=== PATIENT | female | born 1970 | race Caucasian/White ===

== ENCOUNTER 2019-03-13 15:24 | Emergency (ER) | payer OTHER ==
[~2019-03-13] VITALS: Ht 152.4 cm; Wt 65.8 kg
[~2019-03-13 15:24] MED LIST: ACET325; CARI350; CARI350 PO; CEPH500 PO; CODBUTACEC PO; DIAZ5 PO; FLUO10; FLUO20 PO; GABA100 PO; HYDACE5 PO; HYDACE7.5 PO; HYOS.125 SL; MECL25 PO; MORP30 PO; ONDA4ODT MM; OXYACE5T PO; OXYC30 PO; SULTRIDS PO
[2019-03-13 15:52] LABS: BASOPHILS ABSOLUTE AUTO 0.09 K/mm3 (0.00-0.23); BASOPHILS PERCENT AUTO 1 % (0-2); EOSINOPHILS ABSOLUTE AUTO 0.45 K/mm3 (0.00-0.68); EOSINOPHILS PERCENT AUTO 2 % (0-6); Hematocrit 45.2 % (33.0-51.0); Hemoglobin 14.7 g/dL (11.5-16.0); IMMATURE GRAN ABSOLUTE AUTO 0.07 K/mm3 (0.00-0.10); IMMATURE GRAN PERCENT AUTO 0 % (0-1); LYMPHOCYTES ABSOLUTE AUTO 4.43 K/mm3 (0.84-5.20); LYMPHOCYTES PERCENT AUTO 23 % (21-46); MONOCYTES ABSOLUTE AUTO 1.35 K/mm3 (0.16-1.47); MONOCYTES PERCENT AUTO 7 % (4-13); Mean Corpuscular HGB 29.5 pg (26.0-34.0); Mean Corpuscular HGB Conc 32.5 g/dL (31.5-36.5); Mean Corpuscular Volume 91 fL (80-100); Mean Platelet Volume 9.1 fL (9.1-12.4); NEUTROPHILS ABSOLUTE AUTO 13.12 K/mm3 (1.96-9.15); NEUTROPHILS PERCENT AUTO 67 % (41-73); Platelet Count 466 K/mm3 (150-400); RDW Coefficient Variation 14.3 % (11.7-14.2); Red Blood Cell Count 4.98 M/mm3 (3.80-5.20); White Blood Cell Count 19.51 K/mm3 (4.00-11.30)
[2019-03-13] MEDS ORDERED: ROXICODONE15 MG (15:53)
[2019-03-13] MEDS ORDERED: HYDHCL25 PO (16:10)
[2019-03-13] MEDS ORDERED: BUPROPION HCL200 M1 PO (16:11)
[2019-03-13] MEDS ORDERED: PROZAC40 MG PO (16:12)
[2019-03-13] MEDS ORDERED: NEURONTIN300 MG (16:12)
[2019-03-13 16:18] LABS: Alanine Aminotransfer (ALT/SGP 26 U/L (12-78); Albumin, Blood 3.5 g/dL (3.4-5.0); Alk Phos 89 U/L (50-136); Anion Gap 7 mmol/L (6-16); Aspartate Aminotrans (AST/SGOT 33 U/L (12-37); Bilirubin, Total 0.2 mg/dL (0.1-1.0); Blood Urea Nitrogen 17 mg/dL (8-24); Bun/Creatinine Ratio 24.7 (12.0-20.0); CO2, Blood 26 mmol/L (21-32); Calcium, Blood 8.4 mg/dL (8.5-10.1); Chloride, Blood 106 mmol/L (98-108); Creatinine, Blood 0.69 mg/dL (0.40-1.00); Globulin, Blood 3.5 g/dL (2.2-4.0); Glomerular Filtration Rate >60 (60-); Glucose, Blood 153 mg/dL (70-99); Sodium, Blood 139 mmol/L (136-145); Troponin I <0.015 ng/mL (0.000-0.040)
[2019-03-13] MEDS ORDERED: Protonix40 MG PO (17:15)
[2019-03-13] MEDS ORDERED: Carafate1 GM/10 ML PO (17:15)
== END 2019-03-13 17:28 | disposition home or self-care (01) ==
LOC: ER 15:24
PROVIDERS: Physician Assistant
DX: K21.9 Gastro-esophageal reflux disease without esophagitis (principal); K22.4 Dyskinesia of esophagus; Z88.8 Allergy status to other drugs, medicaments and biological substances; Z79.899 Other long term (current) drug therapy; G43.909 Migraine, unspecified, not intractable, without status migrainosus; F32.9 Major depressive disorder, single episode, unspecified; F17.200 Nicotine dependence, unspecified, uncomplicated
CPT/HCPCS: 36415; 71046; 80053; 84484; 85025; 93005; 93010; 96374; 96375; 99284-25; J2765; J3360

== ENCOUNTER 2019-04-19 03:44 | Inpatient (IN) | payer OTHER ==
[~2019-04-19] VITALS: Ht 152.4 cm; Wt 65.1 kg
[~2019-04-19 03:44] MED LIST changes: +BUPROPION HCL200 M1 PO; +Carafate1 GM/10 ML PO; +HYDHCL25 PO; +NEURONTIN300 MG; +PROZAC40 MG PO; +Protonix40 MG PO; +ROXICODONE15 MG
[2019-04-19] MEDS ORDERED: CARB200 PO (04:04)
[2019-04-19] MEDS ORDERED: BACL10 PO (04:05)
[2019-04-19 04:28] LABS: BASOPHILS ABSOLUTE AUTO 0.09 K/mm3 (0.00-0.23); BASOPHILS PERCENT AUTO 1 % (0-2); EOSINOPHILS ABSOLUTE AUTO 0.24 K/mm3 (0.00-0.68); EOSINOPHILS PERCENT AUTO 2 % (0-6); Hematocrit 43.1 % (33.0-51.0); Hemoglobin 14.1 g/dL (11.5-16.0); IMMATURE GRAN ABSOLUTE AUTO 0.03 K/mm3 (0.00-0.10); IMMATURE GRAN PERCENT AUTO 0 % (0-1); LYMPHOCYTES ABSOLUTE AUTO 1.96 K/mm3 (0.84-5.20); LYMPHOCYTES PERCENT AUTO 15 % (21-46); MONOCYTES ABSOLUTE AUTO 0.83 K/mm3 (0.16-1.47); MONOCYTES PERCENT AUTO 6 % (4-13); Mean Corpuscular HGB 29.1 pg (26.0-34.0); Mean Corpuscular HGB Conc 32.7 g/dL (31.5-36.5); Mean Corpuscular Volume 89 fL (80-100); Mean Platelet Volume 9.1 fL (9.1-12.4); NEUTROPHILS ABSOLUTE AUTO 9.73 K/mm3 (1.96-9.15); NEUTROPHILS PERCENT AUTO 76 % (41-73); Platelet Count 428 K/mm3 (150-400); RDW Coefficient Variation 13.4 % (11.7-14.2); RDW Standard Deviation 43.9 fL (35.1-46.3); Red Blood Cell Count 4.84 M/mm3 (3.80-5.20); White Blood Cell Count 12.88 K/mm3 (4.00-11.30)
[2019-04-19 04:46] LABS: Alanine Aminotransfer (ALT/SGP 26 U/L (12-78); Albumin, Blood 3.5 g/dL (3.4-5.0); Albumin/Globulin Ratio 0.9 (0.8-1.8); Alk Phos 85 U/L (50-136); Anion Gap 8 mmol/L (6-16); Aspartate Aminotrans (AST/SGOT 23 U/L (12-37); Bilirubin, Total 0.2 mg/dL (0.1-1.0); Blood Urea Nitrogen 11 mg/dL (8-24); Bun/Creatinine Ratio 18.6 (12.0-20.0); CO2, Blood 25 mmol/L (21-32); Calcium, Blood 9.3 mg/dL (8.5-10.1); Chloride, Blood 109 mmol/L (98-108); Creatinine, Blood 0.59 mg/dL (0.40-1.00); Globulin, Blood 3.8 g/dL (2.2-4.0); Glomerular Filtration Rate >60 (60-); Glucose, Blood 132 mg/dL (70-99); Potassium, Blood 3.9 mmol/L (3.5-5.5); Sodium, Blood 142 mmol/L (136-145); Total Protein, Blood 7.3 g/dL (6.4-8.2)
[2019-04-19 05:12] LABS: U Amphetamine Screen Not Detected; U Barbituate Screen Not Detected; U Benzodiazapine Screen Not Detected; U Buprenorphine Screen Not Detected; U Cannabinoids Screen Not Detected; U Cocaine Screen Not Detected; U Methadone Screen Not Detected; U Methamphetamine Screen Not Detected; U Opiates Screen Not Detected; U Oxycodone Screen DETECTED; U Propoxyphene Screen Not Detected
[2019-04-19 05:26] LABS: Source, Urine Clean Catch
[2019-04-19 05:46] LABS: Bilirubin, Urine Neg (Neg); Blood, Urine Neg (Neg); Glucose Qualitative, Urine Neg (Neg); Ketones, Urine Neg (Neg); Leukocyte Esterase, Urine 1+ (Neg); Nitrite, Urine Neg (Neg); Protein, Urine Neg (Neg); Urobilinogen, Urine NORM (Normal)
[2019-04-19 05:58] LABS: Appearance, Urine Clear (Clear); Color, Urine Yellow (P-Yellow)
[2019-04-19 06:02] LABS: Bacteria Mod /hpf; Red Blood Cells, Urine 0-2 /hpf (0-2); Squamous Epithelial Cells Mod /hpf (Few)
[2019-04-19 10:24] LABS: Carbamazepine 11.3 ug/mL (4.0-12.0)
[2019-04-19] MEDS ORDERED: CYCL10 PO (10:42)
[2019-04-19] MEDS ORDERED: QUET25 (10:44)
[2019-04-19 11:05] LABS: Salicylate 6.3 mg/dL (2.8-20.0)
[2019-04-19 11:23] LABS: Acetaminophen, Random <2.0 ug/mL (10.0-30.0)
--- NOTE | 2019-04-19 11:30 | NUR ---
PT ARRIVED AT 1115 FROM ER, VERY AGITATED, NONVERBAL, PULLED OUT PIV, UNABLE TO STAY STILL. NO CLOTHES ON. CALLED DR GOODSON, TRANSFERING TO ICU FOR LIKELY BEHAVIORAL RESTRAINTS. 1130 CALLED ICU TO GIVE REPORT, THEY WILL CALL ME BACK
--- NOTE | 2019-04-19 13:10 | NUR ---
MOTHER HS NO KNOWLEDGE NOR DOES SHE BELIEVE THIS IS A SUICIDE ATTEMPT. NO PRIOR HX.
[2019-04-19 15:46] LABS: Free Thyroxine 0.84 ng/dL (0.70-1.60)
[2019-04-19 15:50] LABS: Triiodothyronine, Free 2.63 pg/mL (2.18-3.98)
--- NOTE | 2019-04-19 16:30 | NUR ---
PT WAS TRANSFERED TO ICU-3 VIA BED WITH AMS. PT NOT ABLE TO FOLLOW COMMANDS BUT WAS VERBAL TO NAME BUT NO FURTHER. PT IS IN PERPETUAL AIMLESS MOTION HAS PULLED IV SITES OUT PRIOR TO ICU AND VEST WITH WRIST RESTRAINTS APPLIED ON ARRIAVAL TO ICU AT 1200. PT HR IS 110-120 AND SBP IS 170-180 RANGE BUT DUE TO EXTREME AIMLESS MOTION, PT VS ARE TRENTS ARE VERY LIMITED. SPOT CHECKING EVEN POSSIBLE REVEALS POOR RESULTS. PT STATS ON RA REMAIN >967%. MOTHER IS IN ROOM AND HX OBTAINED FROM HER. HOME MEDS WERE SEEN BUT NO CLEAR EXCESSIVE DOSE TAKEN FROM RX BOTTLES. PT STATUS CALLED TO LEONEL Haley NP AT APPROX 1545 AND NEW ORDERS OBTAINED. PLAN IS TO MONITOR PT AND MINIMIZE AGITATION BUT OTHERWISE ALLOW PT TO CLEAR W/O EXCESSIVE OR EXTREME INTERVENTION OTHER THAN ORDERED IF STATUS DOESE NOT CHANGE. WILL FOLLOW.
--- NOTE | 2019-04-19 17:41 | NUR ---
PT CONT. WITH AIMLESS RESTLESSNESS AND SOME CONT NOTED TWITCHING/JURKING OF EXT. WITH MOVEMENT AND ACTIVITE. PT IS NON-VERBAL, NO EYE CONTACT. HR IS SLOWLY COMING DOWN IS BP. LUNGS REMAIN CLEAR AND NS AFTER BOLUS DOSE CHANGED TO 125 ML/HOUR. PT HAS VOIDED INCONT. TIMES ONE THUS FAR IN SHIFT. PT REMAINS RESTRAINED WITH VEST AND SOFT WRIST RESTRAINTS. PT MOTHER IS IN ROOM AND HAS REQUESTED ONLY HER TO BE ALLOWED IN ROOM UNTIL PT CLEARS MENTALLY. WILL MONITOR FOR NEXT DOSE OF MEDS PESR PRN SCHEDULE.
--- NOTE | 2019-04-19 19:43 | NUR ---
ASSUMED CARE OF AT 1915. PT RESTLESS, NO VERBAL, NO EYE OPENING/ MERCEDES OPENING . PUPILS DIALATED AND SLUGGISH. CONSTANLEY TOSSING AND TURNING. NOT FOLLOWING COMMANDS. CAN MOVE ALL EXTREMETIES FULL POWER. NS @125ML/HR. NO CHANGE IN BEHAVIOR STILL PULLING AT BRIEF AND TRYING TO SIT UP/GET OUT OF BED IN 2 POINT SOFT RESTRAINTS AND VEST. PLAN TO OBSERVE AND TREAT S&S.
--- NOTE | 2019-04-20 01:28 | NUR ---
PT HAD EPISODE OF EMESIS, ZOFRAN GIVEN
[2019-04-20 03:58] LABS: BASOPHILS ABSOLUTE AUTO 0.07 K/mm3 (0.00-0.23); BASOPHILS PERCENT AUTO 0 % (0-2); EOSINOPHILS ABSOLUTE AUTO 0.03 K/mm3 (0.00-0.68); EOSINOPHILS PERCENT AUTO 0 % (0-6); Hematocrit 42.7 % (33.0-51.0); Hemoglobin 14.1 g/dL (11.5-16.0); IMMATURE GRAN ABSOLUTE AUTO 0.08 K/mm3 (0.00-0.10); IMMATURE GRAN PERCENT AUTO 0 % (0-1); LYMPHOCYTES ABSOLUTE AUTO 2.12 K/mm3 (0.84-5.20); LYMPHOCYTES PERCENT AUTO 10 % (21-46); MONOCYTES ABSOLUTE AUTO 1.65 K/mm3 (0.16-1.47); MONOCYTES PERCENT AUTO 8 % (4-13); Mean Corpuscular HGB 29.1 pg (26.0-34.0); Mean Corpuscular Volume 88 fL (80-100); Mean Platelet Volume 9.1 fL (9.1-12.4); NEUTROPHILS ABSOLUTE AUTO 17.25 K/mm3 (1.96-9.15); NEUTROPHILS PERCENT AUTO 81 % (41-73); Platelet Count 446 K/mm3 (150-400); RDW Coefficient Variation 13.7 % (11.7-14.2); RDW Standard Deviation 44.1 fL (35.1-46.3); Red Blood Cell Count 4.85 M/mm3 (3.80-5.20)
[2019-04-20 04:18] LABS: Alanine Aminotransfer (ALT/SGP 36 U/L (12-78); Albumin, Blood 3.4 g/dL (3.4-5.0); Albumin/Globulin Ratio 0.9 (0.8-1.8); Alk Phos 87 U/L (50-136); Anion Gap 6 mmol/L (6-16); Aspartate Aminotrans (AST/SGOT 67 U/L (12-37); Bilirubin, Total 0.5 mg/dL (0.1-1.0); Blood Urea Nitrogen 7 mg/dL (8-24); Bun/Creatinine Ratio 13.4 (12.0-20.0); CO2, Blood 25 mmol/L (21-32); Calcium, Blood 8.7 mg/dL (8.5-10.1); Chloride, Blood 111 mmol/L (98-108); Creatinine, Blood 0.52 mg/dL (0.40-1.00); Globulin, Blood 3.7 g/dL (2.2-4.0); Glomerular Filtration Rate >60 (60-); Glucose, Blood 123 mg/dL (70-99); Potassium, Blood 3.4 mmol/L (3.5-5.5); Sodium, Blood 142 mmol/L (136-145); Total Protein, Blood 7.1 g/dL (6.4-8.2)
--- NOTE | 2019-04-20 05:00 | NUR ---
PT HAD 2ND EPISODE OF EMESIS, ZOFRAN GIVEN
--- NOTE | 2019-04-20 06:33 | NUR ---
PT IS RESTLESS, CONSTANLY TOSSING AND TURNING, KICKING LEG OVER RAILS. DOES NOT FOLLOW COMMANDS. NO EYE OPENING, HAD TO MANUELLY OPEN EYE TO ASSESS, DILATED AND SLUGGISH. PT IN 2-POINT WRIST AND VEST. NS AT 125ML/HR. PT HAD X2 EPISODES OF EMESIS OVER NIGHT, WILL CONTINUE TO MONITOR
--- NOTE | 2019-04-20 10:36 | NUR ---
AM NOTE. UPON ASSUMING CARE, PT WAS RANDOMLY MOVING BUT HAD SLOWED DOWN SIGNIFICANTLY FROM YESTERDAY AT CHANGE OF SHIFT. PT AIMLESSLY MOVING BUT IS SLOWER AND LONGER PERIODS OF REST. PT HAS VERY RED SKIN ON ELBOWS AND OUTER THIGHS, LOTION WAS APPLIED AND NO SKIN BREAKDOWN NOTED. PT IS NOT ABLE TO FOLLOW COMMANDS, IS NON-VERBAL, W/O FOLLOWING COMMANDS OR SPONT OPENING EYES. PT MOTHER IS IN ROOM AND AWARE OF PT STATUS. VS NOTED. PT INCONT URINE W/O SKIN IRRITATION. IVF AT 125ML NS MAINTANCE FLUIDS. PT IS RESTRAINED WITH VEST AND WRIST REST...
--- NOTE | 2019-04-20 10:47 | NUR ---
PT IS UNABLE TO PARTICIPATE IN EVALUATION AT THIS TIME DUE TO AMS.
--- NOTE | 2019-04-20 12:54 | NUR ---
EMESIS ALERTED BY PT'S MOTHER OF ANOTHER EPISODE OF EMESIS. BILE COLORED EMESIS SUCTIONED AND ZOFRAN ADMINISTERED. SPO2 96%, WILL NOTIFY PRIMARY RN.
--- NOTE | 2019-04-20 14:15 | NUR ---
1350 AFTER RETURNING FROM LUNCH, IT WAS REPORTED THAT PT HAD VOMITTED. PT HAS BEEN POSITIONED WITH HOB ELEVATED BUT PT HAS BEEN TURNING SIDE TO SIDE. IT WAS UNCLEAR WHETHER PT HAD ASPIRATED HOWEVER RN JACQUELINE HAS SX PT MOUTH OUT IN EFFORT TO MINIMIZE COMPLICATIONS. PT MOTHER IS AT BEDSIDE AND HAS BEEN IN AND OUT. PT BP HAS BEEN SL ELEVATED AND PRN MEDS GIVEN NOTED.
--- NOTE | 2019-04-20 18:52 | NUR ---
PT HAS CONT AND INCREASED THE AIMLESS MOTION WITH OCC MUMBLING BUT UNCLEAR MENTALLY AND UNABLE TO FOLLOW COMMANDS. IVF UNCHANGED. MOTHER REMAINS IN ROOM. PT REMAINS RESTRAINED AND HOB ELEVATED TO ATTEMP AND PROTECT FROM ASPIRATON ISSUES. VS NOTED AND SOMEWHAT UNRELIABLE DUE TO MOVEMENT AND TENSING MUSCLES.
--- NOTE | 2019-04-20 19:00 | NUR ---
ASSUMED CARE ASSUMED CARE OF PATIENT. CONTINUES WITH ALMOST CONTINUAL RESTLESS MOVEMENTS IN BED. DOES NOT OPEN EYES. DOES NOT FOLLOW COMMANDS. INFREQUENT MOANS. REPOSITIONS SELF. PULLS AT ATTENDS AND RESTRAINTS. MONICO VEST IN PLACE. BILATERAL SOFT WRIST RESTRAINTS. MONITOR SHOWS NSR, RATE 90s. HYPERTENSIVE, BUT PT DOES NOT HOLD STILL WHILE CUFF IS INFLATING/DEFLATING. RA SATS STABLE. TACHYPNEIC, RR 25-35. INCONTINENT OF URINE- ATTENDS IN PLACE. NS @ 125CC/HR PER ORDER. MOTHER AT BEDSIDE. SEE SHIFT ASSESSMENT FOR FULL ASSESSMENT.
--- NOTE | 2019-04-20 23:00 | NUR ---
EMESIS PT COUGHING AND GAGGING, FOLLOWED BY MODERATE AMOUNT OF BILE GREEN EMESIS. MEDICATED WITH ZOFRAN 8MG IV AT THIS TIME.
--- NOTE | 2019-04-21 00:15 | NUR ---
HYPERTENSION BP 185/100- MEDICATED WITH HYDRALAZINE 10MG IV.
[2019-04-21 03:46] LABS: BASOPHILS ABSOLUTE AUTO 0.09 K/mm3 (0.00-0.23); BASOPHILS PERCENT AUTO 1 % (0-2); EOSINOPHILS ABSOLUTE AUTO 0.05 K/mm3 (0.00-0.68); EOSINOPHILS PERCENT AUTO 0 % (0-6); Hematocrit 45.7 % (33.0-51.0); Hemoglobin 15.3 g/dL (11.5-16.0); IMMATURE GRAN PERCENT AUTO 1 % (0-1); LYMPHOCYTES ABSOLUTE AUTO 2.48 K/mm3 (0.84-5.20); LYMPHOCYTES PERCENT AUTO 13 % (21-46); MONOCYTES ABSOLUTE AUTO 1.63 K/mm3 (0.16-1.47); MONOCYTES PERCENT AUTO 8 % (4-13); Mean Corpuscular HGB 28.8 pg (26.0-34.0); Mean Corpuscular HGB Conc 33.5 g/dL (31.5-36.5); Mean Corpuscular Volume 86 fL (80-100); Mean Platelet Volume 8.9 fL (9.1-12.4); NEUTROPHILS PERCENT AUTO 78 % (41-73); Platelet Count 452 K/mm3 (150-400); RDW Coefficient Variation 13.7 % (11.7-14.2); RDW Standard Deviation 42.5 fL (35.1-46.3); Red Blood Cell Count 5.32 M/mm3 (3.80-5.20); White Blood Cell Count 19.35 K/mm3 (4.00-11.30)
[2019-04-21 04:08] LABS: Alanine Aminotransfer (ALT/SGP 40 U/L (12-78); Albumin, Blood 3.6 g/dL (3.4-5.0); Alk Phos 86 U/L (50-136); Anion Gap 8 mmol/L (6-16); Aspartate Aminotrans (AST/SGOT 47 U/L (12-37); Bilirubin, Total 0.6 mg/dL (0.1-1.0); Blood Urea Nitrogen 9 mg/dL (8-24); Bun/Creatinine Ratio 17.3 (12.0-20.0); CO2, Blood 25 mmol/L (21-32); Calcium, Blood 8.6 mg/dL (8.5-10.1); Chloride, Blood 107 mmol/L (98-108); Creatinine, Blood 0.52 mg/dL (0.40-1.00); Globulin, Blood 3.7 g/dL (2.2-4.0); Glomerular Filtration Rate >60 (60-); Glucose, Blood 122 mg/dL (70-99); Magnesium, Blood 1.8 mg/dL (1.6-2.4); Potassium, Blood 3.1 mmol/L (3.5-5.5); Sodium, Blood 140 mmol/L (136-145); Total Protein, Blood 7.3 g/dL (6.4-8.2)
--- NOTE | 2019-04-21 04:30 | NUR ---
EMESIS PT WITH SMALL AMOUNT OF EMESIS AFTER COUGHING. MEDICATED WITH ZOFRAN 8MG IV.
--- NOTE | 2019-04-21 05:24 | NUR ---
POTASSIUM POTASSIUM LEVEL IS 3.1- CALLED TO DR. ROMAN AND NEW ORDER RECEIVED FOR KCL REPLACEMENT.
--- NOTE | 2019-04-21 06:27 | NUR ---
SHIFT SUMMARY NO ACUTE CHANGES. CONTINUES WITH RESTLESSNESS AND ALMOST CONTINUAL MOVEMENT. NOT FOLLOWING ANY COMMANDS. MOVES ALL EXTREMITIES WITHOUT DIFFICULTY. BILATERAL SOFT WRIST RESTRAINTS AND MONICO VEST REMAIN IN PLACE. MEDICATED WITH HYDRALAZINE 10MG X 2 DOSES DURING NOC FOR HYPERTENSION. RA SATS STABLE AND RESPIRATIONS UNLABORED, BUT OCCASIONALLY TACHYPNEIC WITH AGITATION. MEDICATED WITH ATIVAN AND BENADRY NEEDED FOR AGITATION. ALSO MEDICATED WITH FENTANYL 25MCG IV X 1 FOR GENERAL DISCOMFORT. REMAINED NPO T/O NOC. NS INFUSING @ 125CC/HR. INCONTINENT OF URINE APPROXIMATELY Q2-3H. INCONTINENT OF LOOSE STOOL X 1. MOTHER REMAINED AT BEDSIDE T/O SHIFT. WILL REPORT TO DAY SHIFT RN WHEN AVAILABLE.
--- NOTE | 2019-04-21 09:39 | NUR ---
BEDSIDE REPORT TAKEN AT 0710. PT WRITHING IN BED. PT UNABLE TO OPEN EYES TO COMMAND. ATTEMPTS TO SPEAK BUT MOST WORDS ARE IN A NONCOMPREHENSIBLE WHISPER. PT HAS RASH TO BILAT LEGS FROM WRITHING AND VARIOUS SCATTERED SCRATCHES AND BRUISES T/O. ATTENDS ON. PT HTN. NSR TO SINUS TACH. TEMP 98.5. SATS 98% ON RA. PT GIVEN BEDBATH W ATTENDS CHANGED. PT ABLE TO STATE SHE WAS IN PAIN. BOTH BENADRYL AND FENT 25MCG GIVEN. K+ RIDER INFUSING. DR STEEL AT BEDSIDE, PRECEDEX GTT TO BE STARTED. PT ALSO STATED THAT SHE WAS COLD, WARM BLANKETS GIVEN. MONICO AND WRIST RESTRAINTS ON. PT'S LEFT IV IS TENDER, WILL PLACE A POWERGLIDE.
--- NOTE | 2019-04-21 10:43 | NUR ---
PRECEDEX STARTED AT 0.5MCG. PT'S MOTHER AT BEDSIDE. PT CONT TO WRITH IN BED BUT CAN ANSWERS SOME QUESTIONS APPROPRIATELY.
--- NOTE | 2019-04-21 13:58 | NUR ---
POWERGLIDE PLACED TO THOM. PT SLEPT THROUGH MOST OF THE PROCEDURE. PT AROUSES TO VOICE AND AT TIMES IS ABLE TO ANSWER QUESTIONS WITH EITHER A YES OR NO OR SIMPLE WORD. VSS, HTN IMPROVED W PRECEDEX
--- NOTE | 2019-04-21 18:49 | NUR ---
PT DID VERY WELL ON THE PRECEDEX GTT. IT WAS TITRATED DOWN TO 0.3MCG. AT 1630 PT WOKE UP AND WAS MUCH MORE ALERT THAN SHE HAD BEEN. PT ABLE TO ANSWERS APPROPRIATELY. STILL VERY WEAK WITH A WHISPER. C/O DRY MOUTH. DENIES PAIN BUT STATES THAT SHE FEELS SICK; ALSO DENIES NAUSEA. CAN STATE THAT IT IS 2020, AND THOUGHT THAT SHE WAS IN A HOSP IN [place]. PT COOPERATED W ATTENDS [facility]. MOTHER REMAINS AT BEDSIDE.
--- NOTE | 2019-04-21 19:00 | NUR ---
ASSUMED CARE ASSUMED CARE OF PATIENT. RESTING QUIETLY WHEN UNDISTURBED. ROUSES EASILY TO VERBAL STIMULI. ORIENTED TO SELF, FAMILY, MONTH/YEAR, AND TO THE FACT THAT SHE IS IN THE HOSPITAL. STATES THAT SHE IS AT "[facility] WHEN ASKED IF SHE KNOWS WHICH HOSPITAL. CALM AND COOPERATIVE WITH CARE. REPOSITIONS SELF IN BED. MONICO VEST ON- WILL MONITOR FOR CONTINUED NEED FOR RESTRAINT. SLOW VERBAL RESPONSE. SPEECH IS WHISPERED AND GARBLED. DENIES C/O PAIN AT THIS TIME. PRECEDEX CONTINUES AT 0.3MCG/KG/HR. NS INFUSING AT 100CC/HR PER ORDER. REMAINS NPO. OCCASIONALLY INCONTINENT OF URINE- ATTENDS IN PLACE. SEE SHIFT ASSESSMENT FOR FULL ASSESSMENT.
--- NOTE | 2019-04-21 20:15 | NUR ---
RESTRAINTS PT IS CALM AND COOPERATIVE. MONICO VEST OFF AT THIS TIME. BED ALARM IS ON AND MOTHER IS AT BEDSIDE.
--- NOTE | 2019-04-22 02:15 | NUR ---
NAUSEA PT C/O FEELING NAUSEOUS. CALL DR. ROMAN- NEW ORDER RECEIVED FOR ZOFRAN. PT IS TEARFUL AND INCREASINGLY ANXIOUS AT THIS TIME. PRECEDEX INCREASED TO 0.5MCG/KG/HR.
[2019-04-22 05:02] LABS: BASOPHILS ABSOLUTE AUTO 0.07 K/mm3 (0.00-0.23); BASOPHILS PERCENT AUTO 1 % (0-2); EOSINOPHILS ABSOLUTE AUTO 0.19 K/mm3 (0.00-0.68); EOSINOPHILS PERCENT AUTO 2 % (0-6); Hematocrit 38.6 % (33.0-51.0); Hemoglobin 12.8 g/dL (11.5-16.0); IMMATURE GRAN ABSOLUTE AUTO 0.05 K/mm3 (0.00-0.10); IMMATURE GRAN PERCENT AUTO 0 % (0-1); LYMPHOCYTES PERCENT AUTO 25 % (21-46); MONOCYTES ABSOLUTE AUTO 1.24 K/mm3 (0.16-1.47); MONOCYTES PERCENT AUTO 11 % (4-13); Mean Corpuscular HGB 28.9 pg (26.0-34.0); Mean Corpuscular HGB Conc 33.2 g/dL (31.5-36.5); Mean Corpuscular Volume 87 fL (80-100); Mean Platelet Volume 9.8 fL (9.1-12.4); NEUTROPHILS ABSOLUTE AUTO 7.23 K/mm3 (1.96-9.15); NEUTROPHILS PERCENT AUTO 62 % (41-73); Platelet Count 390 K/mm3 (150-400); RDW Coefficient Variation 13.6 % (11.7-14.2); RDW Standard Deviation 43.1 fL (35.1-46.3); Red Blood Cell Count 4.43 M/mm3 (3.80-5.20); White Blood Cell Count 11.68 K/mm3 (4.00-11.30)
[2019-04-22 05:22] LABS: Anion Gap 8 mmol/L (6-16); Blood Urea Nitrogen 20 mg/dL (8-24); Bun/Creatinine Ratio 33.5 (12.0-20.0); CO2, Blood 23 mmol/L (21-32); Calcium, Blood 8.1 mg/dL (8.5-10.1); Chloride, Blood 113 mmol/L (98-108); Glomerular Filtration Rate >60 (60-); Glucose, Blood 100 mg/dL (70-99); Potassium, Blood 3.6 mmol/L (3.5-5.5); Sodium, Blood 144 mmol/L (136-145)
--- NOTE | 2019-04-22 06:30 | NUR ---
SHIFT SUMMARY NO ACUTE CHANGES DURING NOC. SLEEPING INTERMITTENTLY. ROUSES EASILY TO VERBAL STIMULI. CALM AND COOPERATIVE T/O MOST OF NOC. PRECEDEX INFUSED BETWEEN 0.2-0.7MCG/KG/HR- NOW INFUSING @ 0.2MCG/KG/HR. ORIENTED TO SELF, FAMILY, MONTH/YEAR, AND TO THE FACT THAT SHE IS IN THE HOSPITAL. CONFUSED ABOUT EVENTS LEADING UP TO HOSPITALIZATION. REPOSITIONS SELF IN BED. MEDICATED WITH FENTANYL X 1 FOR C/O BACK PAIN. VSS T/O NOC. AFEBRILE. RA SATS STABLE. RESPIRATIONS EVEN AND UNLABORED. OCCASIONALLY TACHYPNEIC. NS INFUSING AT 100CC/HR PER ORDER. WILL REPORT TO DAY SHIFT RN WHEN AVAILABLE.
--- NOTE | 2019-04-22 07:22 | NUR ---
BEDSIDE REPORT TAKEN AY 0710. PT SLEEPING RESTFULLY, PRECEDEX AT 0.2MCG. PT'S MOTHER SLEEPING IN CHAIR AT BEDSIDE. RESTRAINTS WERE REMOVED LAST NIGHT. VSS. PLAN: TITRATE PRECEDEX OFF THIS AM TOLERATED. OOB TO CHAIR. ADVANCE DIET TOLERATED IF AWAKE AND ALERT, PSYCH CONSULT PLANNED FOR TODAY.
--- NOTE | 2019-04-22 08:46 | NUR ---
PRECEDEX OFF AT 0750. PT UP TO TOILET SBA. PT WEAK BUT ABLE TO BEAR WEIGHT. PT ORINENTED X3. PT STATES SHE TOOK MEDICATIONS (NEW) ORDERED, WENT TO BED/FELT GOOD, AND WOKE UP IN HOSPITAL. PT HAS PRODUCTIVE COUGH, SATS 95-98% ON RA. NS RUNNING AT 100CC/HR. ABX INFUSING. DR STEEL IN TO SEE PT. PT NOW MEDICAL STATUS NO TELE.
--- NOTE | 2019-04-22 09:32 | NUR ---
PT C/O NAUSEA SHORTLY AFTER FENT GIVEN FOR 5/10 BACK PAIN
--- NOTE | 2019-04-22 11:53 | NUR ---
PAIN C/O PAIN 8/10 TO LOWER BACK. PT REQUESTING HOME OXYCODONE RX/DOSE. PT ALSO C/O NAUSEA. DR STEEL CALLED. TORADOL AND COMPAZINE TO BE ORDERED. PT OOB TO SHOWER W [employer] ASSIST; PT TOLERATED WELL. PT REQUESTING JELLO AND SPRITE.
--- NOTE | 2019-04-22 12:52 | NUR ---
PT CONTINUES TO C/O NAUSEA; NO EMESIS. UNABLE TO STATE WHETHER SHE IS STILL IN PAIN. PT IS FIXATED ON RESTARTING PAIN MEDS. PT STATED THAT SHE ASKED HER MOM TO GIVE HER ONE OF HER OXYCONTIN'S BUT "SHE SAID NO". PT EDUCATED ON THE IMPORTANCE OF NOT TAKING MEDICATIONS IN THE HOSPITAL THAT THE PHYSICIAN DID NOT ORDERED; PT AGREED. REPORT GIVEN TO MEDICAL FLOOR RN
--- NOTE | 2019-04-22 14:05 | NUR ---
ICU TRANSFER- PT ARRIVED TO ROOM 302 VIA BED FROM ICU, PT A SBA INTO BED. PT REPORTS 6/10 CHRONIC PAIN TO LOWER BACK AND BILAT HIPS. LS CLEAR, ON RA, OCC PRODUCTIVE COUGH PER PT. PT A/OX4 BUT SOME FORGETFULNESS NOTED. PT SETTING OFF BED ALARM AND NOT CALLING FOR ASSISTANCE. PT VERY UNSTEADY GAIT AND SITTING UP IN BED ROCKING. AWAITING [facility] CONSULT AT THIS TIME. PT REPORTS SOME NAUSEA BUT REPORTS IMPROVED. PT ORIENTED TO ROOM AND CALL SYSTEM, CALL LIGHT IN REACH, BED ALARM ON.
--- NOTE | 2019-04-22 16:17 | NUR ---
PT CONT TO BE ANXIOUS, ROCKING BACK AND FORTH IN BED. PT REQUESTING HER 10MG OXYCODONE THAT SHE HAS BEEN ON FOR YEARS. PT CURRENTLY AWAITING CONSULT FROM DR IZAGUIRRE, SPOKE WITH ER NURSE WHO REPORTS DR IZAGUIRRE HAS GONE HOME FOR TODAY. FACESHEET RECENT TO ER FOR CONSULT. SPOKE WITH DR STEEL WHO HAS OK'D FOR PT TO RECEIVE OXYCODONE 5MG PRN AT THIS TIME. WILL CONT TO MONITOR.
--- NOTE | 2019-04-22 16:21 | NUR ---
DR IZAGUIRRE IN TO SEE PT.
--- NOTE | 2019-04-22 16:49 | NUR ---
SHIFT SUMMARY- PT A ICU TRANSFER TODAY. PT A/OX3 BUT FORGETFUL AND ANXIOUS. LS CLEAR, ON RA, OCC PRODUCTIVE COUGH. PT UP TO BATHROOM WITH SBA, UNSTEADY GAIT AND DOES NOT CALL APROPRIATELY. PT REPORTS CHRONIC PAIN, PT STARTED BACK ON 5MG OXYCODONE BUT REPORTS TAKES 10[address] IZAGUIRRE CONSULTED FOR HOME MEDICATIONS. PT HAS BEEN LYING IN BED ROCKING BACK AND FORTH SINCE ARRIVAL TO FLOOR AND REPORTS NAUSEA BUT TOLERATING CLEAR LIQUIDS. NO OHTER ACUTE CHANGES THIS SHIFT.
--- NOTE | 2019-04-22 18:01 | NUR ---
REPORT TO GABRIELA PT TO TRANSFER TO ROOM 345.
--- NOTE | 2019-04-22 18:30 | NUR ---
PATIENT TRANSFERRED FROM 302 TO ROOM 345, REPORT RECEIVED FROM ROMAN YANG.
--- NOTE | 2019-04-22 19:48 | NUR ---
191 REPORT RECEIVED FROM GABRIELA; PTS MOTHER AT SIDE; RESTING COMFORTABLY IN BED.
--- NOTE | 2019-04-23 04:13 | NUR ---
SHIFT SUMMARY: 48 Y/O FEMALE HAD VERY RESTLESS NIGHT WITH NUMEROUS C/O NAUSEA--ZOFRAN 4MG AND COMPAZINE 10MG; C/O GENERALIZED PAIN WITH OXYCODONE 5MG PO ANDS TORADOL 30MG IVP X 1 GIVEN WITH MINIMAL RELIEF; PT HAS ALOT ANXIETY AT TIMES AND REQUIRES FREQUENT REASSURANCE AND REDIRECTION FROM NURSING STAFF; BED LOW POSITION WITH CALL LIGHT AT SIDE; MOTHER AT SIDE 3/4 NIGHT; ALERT AND ORIENTED X 3; ABLE TO FOLLOW ALL SIMPLE VERBAL COMMANDS.
[2019-04-23] MEDS ORDERED: Seroquel Xr50 MG PO (15:54)
--- NOTE | 2019-04-23 16:51 | NUR ---
DISCHARGE NOTE- PT MOTHER WAS PRESENT FOR THE DISCHARGE TEACHING. PT PG AND TELE WERE DC'D PRIOR TO DISCHARGE. PT WAS GIVEN VERBAL AND WRITTEN DISCHARGE INSTRUCTIONS AND ACKNOWLEDGED UNDERSTANDING OF THEM. PT AND FAMILY HAD NO FURTHER QUESTIONS AT THE TIME OF DISCHARGE. CONTACT INFORMATION PROVIDED IN THE EVENT THAT QUESTIONS ARRISE. PT FOLLOW UP SCHEDULED WITH DR GRIFFITH HER PCP IS OUT OF THE OFFICE ALL WEEK. PT IS AWARE OF THE SCHEDULED APPOINTMENT.
== END 2019-04-23 16:16 | disposition home or self-care (01) | DRG 93 ==
LOC: ER 03:44 → ICUE 03:45 → MEDS 03:45 → ICUE 11:01 → ER 11:01 → MEDS 11:07 → ICUE 11:56 → MEDS 04-22 13:16
PROVIDERS: Emergency Medicine; Internal Medicine; Nurse Practitioner Acute Care; ADMIT Internal Medicine
DX: G92 Toxic encephalopathy (principal); G89.4 Chronic pain syndrome; Z79.891 Long term (current) use of opiate analgesic; G43.909 Migraine, unspecified, not intractable, without status migrainosus; F43.10 Post-traumatic stress disorder, unspecified; K21.9 Gastro-esophageal reflux disease without esophagitis; M26.629 Arthralgia of temporomandibular joint, unspecified side; Z79.899 Other long term (current) drug therapy; E87.6 Hypokalemia; D72.829 Elevated white blood cell count, unspecified; F32.9 Major depressive disorder, single episode, unspecified; G50.0 Trigeminal neuralgia; F41.1 Generalized anxiety disorder; T42.8X5A Adverse effect of antiparkinsonism drugs and other central muscle-tone depressants, initial encounter; T42.1X5A Adverse effect of iminostilbenes, initial encounter; T43.595A Adverse effect of other antipsychotics and neuroleptics, initial encounter; T40.2X5A Adverse effect of other opioids, initial encounter; Y92.9 Unspecified place or not applicable
CPT/HCPCS: 36415; 71045; 80048; 80053; 80156; 81001; 82550; 83735; 84439; 84443; 84481; 85025; 87086; 96365; 96372; 96372-59; 96374; 96375; 96376; 99285-25; C1751; G0378; G0480; J0360; J0515; J0696; J0780; J1200; J1630; J1650; J1885; J2060; J2405; J3010; J3480; J7030; P9612

== ENCOUNTER 2019-11-16 02:25 | Emergency (ER) | payer OTHER ==
[~2019-11-16] VITALS: Ht 152.4 cm; Wt 68.0 kg
[~2019-11-16 02:25] MED LIST changes: +BACL10 PO; +CARB200 PO; +CYCL10 PO; +QUET25; +Seroquel Xr50 MG PO
== END 2019-11-16 03:51 | disposition home or self-care (01) ==
LOC: ER 02:25
DX: K08.89 Other specified disorders of teeth and supporting structures (principal); Z88.8 Allergy status to other drugs, medicaments and biological substances; Z79.899 Other long term (current) drug therapy; F41.9 Anxiety disorder, unspecified; F32.9 Major depressive disorder, single episode, unspecified; F17.200 Nicotine dependence, unspecified, uncomplicated
CPT/HCPCS: 99282

== ENCOUNTER 2019-11-16 09:38 | Emergency (ER) | payer OTHER ==
[~2019-11-16] VITALS: Ht 152.4 cm; Wt 68.0 kg
[2019-11-16 11:08] LABS: BASOPHILS ABSOLUTE AUTO 0.07 K/mm3 (0.00-0.23); BASOPHILS PERCENT AUTO 1 % (0-2); EOSINOPHILS ABSOLUTE AUTO 0.07 K/mm3 (0.00-0.68); EOSINOPHILS PERCENT AUTO 1 % (0-6); Hematocrit 41.8 % (33.0-51.0); Hemoglobin 13.6 g/dL (11.5-16.0); IMMATURE GRAN ABSOLUTE AUTO 0.04 K/mm3 (0.00-0.10); IMMATURE GRAN PERCENT AUTO 0 % (0-1); LYMPHOCYTES ABSOLUTE AUTO 2.84 K/mm3 (0.84-5.20); LYMPHOCYTES PERCENT AUTO 21 % (21-46); MONOCYTES ABSOLUTE AUTO 0.92 K/mm3 (0.16-1.47); MONOCYTES PERCENT AUTO 7 % (4-13); Mean Corpuscular HGB 28.6 pg (26.0-34.0); Mean Corpuscular HGB Conc 32.5 g/dL (31.5-36.5); Mean Corpuscular Volume 88 fL (80-100); Mean Platelet Volume 9.4 fL (9.1-12.4); NEUTROPHILS ABSOLUTE AUTO 9.88 K/mm3 (1.96-9.15); NEUTROPHILS PERCENT AUTO 72 % (41-73); Platelet Count 442 K/mm3 (150-400); RDW Coefficient Variation 12.5 % (11.7-14.2); RDW Standard Deviation 40.6 fL (35.1-46.3); Red Blood Cell Count 4.75 M/mm3 (3.80-5.20); White Blood Cell Count 13.82 K/mm3 (4.00-11.30)
[2019-11-16 11:27] LABS: Alanine Aminotransfer (ALT/SGP 33 U/L (12-78); Albumin, Blood 3.8 g/dL (3.4-5.0); Alk Phos 89 U/L (50-136); Anion Gap 8 mmol/L (6-16); Aspartate Aminotrans (AST/SGOT 30 U/L (12-37); Bilirubin, Total 0.3 mg/dL (0.1-1.0); Blood Urea Nitrogen 11 mg/dL (8-24); Bun/Creatinine Ratio 18.5 (12.0-20.0); CO2, Blood 26 mmol/L (21-32); Calcium, Blood 9.1 mg/dL (8.5-10.1); Chloride, Blood 105 mmol/L (98-108); Globulin, Blood 3.8 g/dL (2.2-4.0); Glomerular Filtration Rate >60 (60-); Glucose, Blood 114 mg/dL (70-99); Potassium, Blood 3.6 mmol/L (3.5-5.5); Sodium, Blood 139 mmol/L (136-145); Total Protein, Blood 7.6 g/dL (6.4-8.2)
[2019-11-16 11:29] LABS: Troponin I <0.015 ng/mL (0.000-0.040)
== END 2019-11-16 12:39 | disposition home or self-care (01) ==
LOC: ER 09:38
PROVIDERS: Emergency Medicine
DX: H57.11 Ocular pain, right eye (principal); R07.9 Chest pain, unspecified; R53.1 Weakness; R51 Headache; R10.13 Epigastric pain; F32.9 Major depressive disorder, single episode, unspecified; F41.9 Anxiety disorder, unspecified; F17.210 Nicotine dependence, cigarettes, uncomplicated; Z88.8 Allergy status to other drugs, medicaments and biological substances; Z79.899 Other long term (current) drug therapy
CPT/HCPCS: 71046; 80053; 83690; 83735; 84484; 85025; 93005; 93010; 96360; 96361; 99284-25; J7120

== ENCOUNTER 2019-11-25 21:19 | Emergency (ER) | payer OTHER ==
[~2019-11-25] VITALS: Ht 160 cm; Wt 68.0 kg
[2019-11-25 21:58] LABS: BASOPHILS ABSOLUTE AUTO 0.04 K/mm3 (0.00-0.23); BASOPHILS PERCENT AUTO 1 % (0-2); EOSINOPHILS ABSOLUTE AUTO 0.06 K/mm3 (0.00-0.68); EOSINOPHILS PERCENT AUTO 1 % (0-6); Hematocrit 39.8 % (33.0-51.0); IMMATURE GRAN ABSOLUTE AUTO 0.02 K/mm3 (0.00-0.10); IMMATURE GRAN PERCENT AUTO 0 % (0-1); LYMPHOCYTES ABSOLUTE AUTO 2.44 K/mm3 (0.84-5.20); LYMPHOCYTES PERCENT AUTO 29 % (21-46); MONOCYTES ABSOLUTE AUTO 0.53 K/mm3 (0.16-1.47); MONOCYTES PERCENT AUTO 6 % (4-13); Mean Corpuscular HGB 28.6 pg (26.0-34.0); Mean Corpuscular HGB Conc 32.7 g/dL (31.5-36.5); Mean Corpuscular Volume 88 fL (80-100); Mean Platelet Volume 9.6 fL (9.1-12.4); NEUTROPHILS ABSOLUTE AUTO 5.46 K/mm3 (1.96-9.15); NEUTROPHILS PERCENT AUTO 64 % (41-73); Platelet Count 440 K/mm3 (150-400); RDW Coefficient Variation 12.8 % (11.7-14.2); RDW Standard Deviation 41.2 fL (35.1-46.3); Red Blood Cell Count 4.54 M/mm3 (3.80-5.20); White Blood Cell Count 8.55 K/mm3 (4.00-11.30)
[2019-11-25 22:19] LABS: Alanine Aminotransfer (ALT/SGP 21 U/L (12-78); Albumin, Blood 3.4 g/dL (3.4-5.0); Alk Phos 83 U/L (50-136); Anion Gap 9 mmol/L (6-16); Aspartate Aminotrans (AST/SGOT 26 U/L (12-37); Bilirubin, Total 0.4 mg/dL (0.1-1.0); Blood Urea Nitrogen 9 mg/dL (8-24); Bun/Creatinine Ratio 15.1 (12.0-20.0); CO2, Blood 29 mmol/L (21-32); Calcium, Blood 8.9 mg/dL (8.5-10.1); Chloride, Blood 104 mmol/L (98-108); Globulin, Blood 3.5 g/dL (2.2-4.0); Glomerular Filtration Rate >60 (60-); Glucose, Blood 119 mg/dL (70-99); Potassium, Blood 3.4 mmol/L (3.5-5.5); Sodium, Blood 142 mmol/L (136-145); Total Protein, Blood 6.9 g/dL (6.4-8.2); Troponin I <0.015 ng/mL (0.000-0.040)
[2019-11-26] MEDS ORDERED: ONDA4ODT MM (04:27)
== END 2019-11-26 04:57 | disposition home or self-care (01) ==
LOC: ER 21:19
PROVIDERS: Emergency Medicine
DX: R10.11 Right upper quadrant pain (principal); R07.9 Chest pain, unspecified; R11.0 Nausea; M54.9 Dorsalgia, unspecified; F32.9 Major depressive disorder, single episode, unspecified; F41.9 Anxiety disorder, unspecified; F17.210 Nicotine dependence, cigarettes, uncomplicated; Z88.8 Allergy status to other drugs, medicaments and biological substances; Z79.899 Other long term (current) drug therapy
CPT/HCPCS: 36415; 71046; 74177; 76705; 80053; 83690; 84484; 85025; 93005; 93010; 96374; 96376; 99284-25; J2405; Q9967

== ENCOUNTER → 2020-02-07 | Outpatient (CLI) | payer OTHER ==
[2020-02-07 14:57] LABS: Appearance, Urine Clear (Clear); Blood, Urine Neg (Neg); Color, Urine Amber (P-Yellow); Glucose Qualitative, Urine Neg (Neg); Ketones, Urine 1+ (Neg); Leukocyte Esterase, Urine 1+ (Neg); Nitrite, Urine Neg (Neg); Protein, Urine 2+ (Neg); Specific Gravity, Urine 1.025 (1.003-1.022); Urobilinogen, Urine 1+ (Normal)
[2020-02-07 15:18] LABS: Bilirubin, Urine 1+ (Neg)
[2020-02-07 15:19] LABS: Red Blood Cells, Urine 0-2 /hpf (0-2)
[2020-02-07 15:20] LABS: Bacteria Mod /hpf; Squamous Epithelial Cells Rare /hpf (Few)
[2020-02-07 15:21] LABS: Calcium Oxalate Crystals Mod /hpf; Mucus Mod (0-Heavy)
== END | disposition home or self-care (01) ==
LOC: PLD 13:20
PROVIDERS: Nurse Practitioner Family
DX: D72.829 Elevated white blood cell count, unspecified (principal); K13.79 Other lesions of oral mucosa
CPT/HCPCS: 81001; 87070; 87086; 87106; 87205

== ENCOUNTER → 2020-06-06 | Outpatient (CLI) | payer OTHER | END | disposition home or self-care (01) | LOC: LAB SHORT 15:00 → LAB 15:00 | DX: R10.9 Unspecified abdominal pain (principal) | CPT/HCPCS: 87086 ==

== ENCOUNTER → 2020-09-05 | Outpatient (CLI) | payer OTHER ==
[~2020-09-05] MED LIST changes: +ALBU90OI INH; +ASPIR 8181 M1 PO; +METPHE5 PO; +OXYC10TA19 PO; +PANT40; +QUET25 PO; -Seroquel Xr50 MG PO
[2020-09-07 13:38] LABS: Candida species (DNA Probe) Negative (NEGATIVE); G. vaginalis (DNA Probe) Negative (NEGATIVE); T. vaginalis (DNA Probe) Negative (NEGATIVE)
[2020-09-08 02:08] LABS: CHLAMYDIA TRACHOMATIS, NAA Negative (Negative)
== END | disposition home or self-care (01) ==
LOC: LAB 16:00 → LAB SHORT 16:00
PROVIDERS: Physician Assistant
DX: R39.9 Unspecified symptoms and signs involving the genitourinary system (principal)
CPT/HCPCS: 87480; 87491; 87510; 87591; 87660

== ENCOUNTER 2020-10-17 08:35 | Day surgery (SDC) | payer OTHER ==
[~2020-10-17] VITALS: Ht 152.4 cm; Wt 59.3 kg
== END 2020-10-17 10:40 | disposition home or self-care (01) ==
LOC: ORSCSDS 08:35
PROVIDERS: Surgery
PROC: 0DB88ZX Excision of Small Intestine, Via Natural or Artificial Opening Endoscopic, Diagnostic (ICD-10-PCS; principal; 2020-10-17 09:45)
PROC: 0DB58ZX Excision of Esophagus, Via Natural or Artificial Opening Endoscopic, Diagnostic (ICD-10-PCS; principal; 2020-10-17 09:45)
PROC: 0DB48ZX Excision of Esophagogastric Junction, Via Natural or Artificial Opening Endoscopic, Diagnostic (ICD-10-PCS; principal; 2020-10-17 09:45)
PROC: 0DB68ZX Excision of Stomach, Via Natural or Artificial Opening Endoscopic, Diagnostic (ICD-10-PCS; principal; 2020-10-17 09:45)
DX: R10.13 Epigastric pain (principal); K22.2 Esophageal obstruction; K44.9 Diaphragmatic hernia without obstruction or gangrene; F17.210 Nicotine dependence, cigarettes, uncomplicated; Z79.899 Other long term (current) drug therapy
CPT/HCPCS: 88305; 88342; J2704; J7120

== ENCOUNTER → 2020-11-27 | Outpatient (CLI) | payer OTHER ==
[2020-11-28 15:08] LABS: % CD 4 POS. LYMPH. 55.7 % (30.8-58.5); ABSOLUTE CD 4 HELPER 1894 /uL (359-1519); BASO (ABSOLUTE) 0.1 x10E3/uL (0.0-0.2); BASOS 1 % (Not Estab.); EOS 3 % (Not Estab.); EOS (ABSOLUTE) 0.3 x10E3/uL (0.0-0.4); HEMATOCRIT 41.2 % (34.0-46.6); HEMOGLOBIN 13.7 g/dL (11.1-15.9); IMMATURE GRANULOCYTES 0 % (Not Estab.); LYMPHS 34 % (Not Estab.); LYMPHS (ABSOLUTE) 3.4 x10E3/uL (0.7-3.1); MCH 29.1 pg (26.6-33.0); MCHC 33.3 g/dL (31.5-35.7); MCV 88 fL (79-97); MONOCYTES 7 % (Not Estab.); MONOCYTES(ABSOLUTE) 0.7 x10E3/uL (0.1-0.9); NEUTROPHILS 55 % (Not Estab.); NEUTROPHILS (ABSOLUTE) 5.5 x10E3/uL (1.4-7.0); PLATELETS 422 x10E3/uL (150-450); RBC 4.71 x10E6/uL (3.77-5.28); RDW 13.7 % (11.7-15.4)
== END | disposition home or self-care (01) ==
LOC: LAB 11:50 → LAB SHORT 11:50
PROVIDERS: Internal Medicine Infectious Disease
DX: B20 Human immunodeficiency virus [HIV] disease (principal); B37.81 Candidal esophagitis
CPT/HCPCS: 86361

== ENCOUNTER → 2021-04-25 | Outpatient (CLI) | payer OTHER | END | disposition home or self-care (01) | LOC: LAB 16:00 → LAB SHORT 16:00 | DX: N39.0 Urinary tract infection, site not specified (principal) | CPT/HCPCS: 87086 ==

== ENCOUNTER 2021-05-08 16:01 | Emergency (ER) | payer OTHER ==
[~2021-05-08] VITALS: Ht 152.4 cm; Wt 61.7 kg
[2021-05-08 17:29] LABS: BASOPHILS ABSOLUTE AUTO 0.06 K/mm3 (0.00-0.23); BASOPHILS PERCENT AUTO 1 % (0-2); EOSINOPHILS ABSOLUTE AUTO 0.29 K/mm3 (0.00-0.68); EOSINOPHILS PERCENT AUTO 3 % (0-6); Hematocrit 37.5 % (33.0-51.0); Hemoglobin 12.3 g/dL (11.5-16.0); IMMATURE GRAN ABSOLUTE AUTO 0.03 K/mm3 (0.00-0.10); IMMATURE GRAN PERCENT AUTO 0 % (0-1); LYMPHOCYTES ABSOLUTE AUTO 5.29 K/mm3 (0.84-5.20); LYMPHOCYTES PERCENT AUTO 48 % (21-46); MONOCYTES ABSOLUTE AUTO 0.88 K/mm3 (0.16-1.47); MONOCYTES PERCENT AUTO 8 % (4-13); Mean Corpuscular HGB 29.3 pg (26.0-34.0); Mean Corpuscular HGB Conc 32.8 g/dL (31.5-36.5); Mean Corpuscular Volume 89 fL (80-100); Mean Platelet Volume 9.6 fL (9.1-12.4); NEUTROPHILS ABSOLUTE AUTO 4.53 K/mm3 (1.96-9.15); NEUTROPHILS PERCENT AUTO 41 % (41-73); Platelet Count 344 K/mm3 (150-400); RDW Coefficient Variation 13.1 % (11.7-14.2); RDW Standard Deviation 42.3 fL (35.1-46.3); White Blood Cell Count 11.08 K/mm3 (4.00-11.30)
[2021-05-08 17:38] LABS: Source, Urine Clean Catch
[2021-05-08 17:43] LABS: Bilirubin, Urine Neg (Neg); Blood, Urine Neg (Neg); Glucose Qualitative, Urine Neg (Neg); Ketones, Urine Neg (Neg); Leukocyte Esterase, Urine Neg (Neg); Nitrite, Urine Neg (Neg); Protein, Urine Neg (Neg); Specific Gravity, Urine 1.015 (1.003-1.022); Urobilinogen, Urine NORM (Normal)
[2021-05-08 17:51] LABS: Appearance, Urine Clear (Clear); Color, Urine Pale Yellow (P-Yellow)
[2021-05-08 18:36] LABS: Alanine Aminotransfer (ALT/SGP 28 U/L (12-78); Albumin, Blood 3.6 g/dL (3.4-5.0); Albumin/Globulin Ratio 1.2 (0.8-1.8); Alk Phos 72 U/L (50-136); Anion Gap 4 mmol/L (6-16); Aspartate Aminotrans (AST/SGOT 25 U/L (12-37); Bilirubin, Total 0.3 mg/dL (0.1-1.0); Blood Urea Nitrogen 16 mg/dL (8-24); Bun/Creatinine Ratio 19.9 (12.0-20.0); CO2, Blood 30 mmol/L (21-32); Calcium, Blood 9.1 mg/dL (8.5-10.1); Chloride, Blood 104 mmol/L (98-108); Creatinine, Blood 0.81 mg/dL (0.40-1.00); Globulin, Blood 2.9 g/dL (2.2-4.0); Glomerular Filtration Rate >60 (60-); Glucose, Blood 106 mg/dL (70-99); Sodium, Blood 138 mmol/L (136-145); Total Protein, Blood 6.5 g/dL (6.4-8.2)
== END 2021-05-08 18:43 | disposition home or self-care (01) ==
LOC: ER 16:01
PROVIDERS: Physician Assistant
DX: K80.70 Calculus of gallbladder and bile duct without cholecystitis without obstruction (principal); F17.210 Nicotine dependence, cigarettes, uncomplicated; Z79.82 Long term (current) use of aspirin; Z79.899 Other long term (current) drug therapy
CPT/HCPCS: 36415; 76705; 80053; 81003; 83690; 85025; 99284-25

== ENCOUNTER 2021-06-29 16:33 | Emergency (ER) | payer OTHER ==
[~2021-06-29] VITALS: Ht 152.4 cm; Wt 66.2 kg
[~2021-06-29 16:33] MED LIST changes: +Inderal40 MG PO
[2021-06-29 17:21] LABS: BASOPHILS ABSOLUTE AUTO 0.07 K/mm3 (0.00-0.23); BASOPHILS PERCENT AUTO 1 % (0-2); EOSINOPHILS ABSOLUTE AUTO 0.73 K/mm3 (0.00-0.68); EOSINOPHILS PERCENT AUTO 6 % (0-6); Hematocrit 41.3 % (33.0-51.0); Hemoglobin 13.7 g/dL (11.5-16.0); IMMATURE GRAN ABSOLUTE AUTO 0.02 K/mm3 (0.00-0.10); IMMATURE GRAN PERCENT AUTO 0 % (0-1); LYMPHOCYTES ABSOLUTE AUTO 4.14 K/mm3 (0.84-5.20); LYMPHOCYTES PERCENT AUTO 36 % (21-46); MONOCYTES ABSOLUTE AUTO 0.78 K/mm3 (0.16-1.47); MONOCYTES PERCENT AUTO 7 % (4-13); Mean Corpuscular HGB 29.8 pg (26.0-34.0); Mean Corpuscular HGB Conc 33.2 g/dL (31.5-36.5); Mean Corpuscular Volume 90 fL (80-100); Mean Platelet Volume 9.3 fL (9.1-12.4); NEUTROPHILS ABSOLUTE AUTO 5.83 K/mm3 (1.96-9.15); NEUTROPHILS PERCENT AUTO 50 % (41-73); Platelet Count 355 K/mm3 (150-400); RDW Coefficient Variation 13.2 % (11.7-14.2); RDW Standard Deviation 43.8 fL (35.1-46.3); White Blood Cell Count 11.57 K/mm3 (4.00-11.30)
[2021-06-29 18:37] LABS: Alanine Aminotransfer (ALT/SGP 53 U/L (12-78); Albumin, Blood 3.8 g/dL (3.4-5.0); Albumin/Globulin Ratio 1.2 (0.8-1.8); Alk Phos 137 U/L (50-136); Anion Gap 5 mmol/L (6-16); Aspartate Aminotrans (AST/SGOT 46 U/L (12-37); Bilirubin, Total 0.4 mg/dL (0.1-1.0); Blood Urea Nitrogen 15 mg/dL (8-24); CO2, Blood 29 mmol/L (21-32); Calcium, Blood 9.1 mg/dL (8.5-10.1); Chloride, Blood 105 mmol/L (98-108); Creatinine, Blood 0.65 mg/dL (0.40-1.00); Globulin, Blood 3.3 g/dL (2.2-4.0); Glomerular Filtration Rate >60 (60-); Glucose, Blood 137 mg/dL (70-99); Potassium, Blood 4.1 mmol/L (3.5-5.5); Sodium, Blood 139 mmol/L (136-145); Total Protein, Blood 7.1 g/dL (6.4-8.2)
[2021-06-29 20:39] LABS: Source, Urine Clean Catch
[2021-06-29 20:48] LABS: Bilirubin, Urine Neg (Neg); Blood, Urine Neg (Neg); Glucose Qualitative, Urine Neg (Neg); Ketones, Urine Neg (Neg); Leukocyte Esterase, Urine Neg (Neg); Nitrite, Urine Neg (Neg); Protein, Urine 1+ (Neg); Urobilinogen, Urine 1+ (Normal)
[2021-06-29 20:58] LABS: Appearance, Urine Clear (Clear); Color, Urine Pale Yellow (P-Yellow)
== END 2021-06-29 21:58 | disposition home or self-care (01) ==
LOC: ER 16:33
PROVIDERS: Physician Assistant
DX: K91.872 Postprocedural seroma of a digestive system organ or structure following a digestive system procedure (principal); G43.909 Migraine, unspecified, not intractable, without status migrainosus; Z88.8 Allergy status to other drugs, medicaments and biological substances; Z79.899 Other long term (current) drug therapy; Z79.82 Long term (current) use of aspirin
CPT/HCPCS: 36415; 74177; 80053; 81025; 83690; 85025; 96374; 99284-25; J2405; J7030; Q9967

== ENCOUNTER 2021-08-21 06:52 | Day surgery (SDC) | payer OTHER ==
[~2021-08-21] VITALS: Ht 152.4 cm; Wt 68.2 kg
--- NOTE | 2021-08-21 07:43 | NUR ---
08/21/21 0743 JOE CHAPA 3 ATTEMPTS AT IV. FIRST ATTEMPT BY MA IN R HAND DIFFICULT TO ADVANCE. SECOND ATTEMPT BY MA IN R ARM DIFFICULT TO ADVANCE. THIRD ATTEMPT BY RN IN L HAND SUCCESFUL.
== END 2021-08-21 15:17 | disposition home or self-care (01) ==
LOC: ORSCSDS 06:52
PROVIDERS: Surgery
PROC: 0DB78ZX Excision of Stomach, Pylorus, Via Natural or Artificial Opening Endoscopic, Diagnostic (ICD-10-PCS; principal; 2021-08-21 08:00)
PROC: 0DB58ZX Excision of Esophagus, Via Natural or Artificial Opening Endoscopic, Diagnostic (ICD-10-PCS; principal; 2021-08-21 08:00)
DX: R14.0 Abdominal distension (gaseous) (principal); K29.70 Gastritis, unspecified, without bleeding; F17.210 Nicotine dependence, cigarettes, uncomplicated; I10 Essential (primary) hypertension; Z79.899 Other long term (current) drug therapy
CPT/HCPCS: 87071; 87075; 87106; 87205; 88305; 88342; J2704; J7120

== ENCOUNTER → 2021-08-31 | Outpatient (CLI) | payer OTHER | END | disposition home or self-care (01) | LOC: LAB 15:08 → LAB SHORT 15:08 | DX: R30.9 Painful micturition, unspecified (principal) | CPT/HCPCS: 87086 ==

== ENCOUNTER 2021-10-27 12:45 | Emergency (ER) | payer OTHER ==
[~2021-10-27] VITALS: Ht 160 cm; Wt 68.0 kg
== END 2021-10-27 16:09 | disposition left against medical advice (07) ==
LOC: ER 12:45
DX: F22 Delusional disorders (principal); F17.210 Nicotine dependence, cigarettes, uncomplicated; Z88.8 Allergy status to other drugs, medicaments and biological substances; Z79.899 Other long term (current) drug therapy; Z53.21 Procedure and treatment not carried out due to patient leaving prior to being seen by health care provider
CPT/HCPCS: 99281

== ENCOUNTER 2021-11-01 17:10 | Emergency (ER) | payer OTHER ==
[~2021-11-01] VITALS: Ht 165.1 cm; Wt 68.0 kg
[2021-11-01 18:34] LABS: BASOPHILS ABSOLUTE AUTO 0.05 K/mm3 (0.00-0.23); BASOPHILS PERCENT AUTO 0 % (0-2); EOSINOPHILS ABSOLUTE AUTO 0.09 K/mm3 (0.00-0.68); EOSINOPHILS PERCENT AUTO 1 % (0-6); Hematocrit 44.7 % (33.0-51.0); Hemoglobin 15.5 g/dL (11.5-16.0); IMMATURE GRAN ABSOLUTE AUTO 0.04 K/mm3 (0.00-0.10); IMMATURE GRAN PERCENT AUTO 0 % (0-1); LYMPHOCYTES ABSOLUTE AUTO 3.64 K/mm3 (0.84-5.20); LYMPHOCYTES PERCENT AUTO 23 % (21-46); MONOCYTES PERCENT AUTO 8 % (4-13); Mean Corpuscular HGB 29.7 pg (26.0-34.0); Mean Corpuscular HGB Conc 34.7 g/dL (31.5-36.5); Mean Corpuscular Volume 86 fL (80-100); Mean Platelet Volume 9.7 fL (9.1-12.4); NEUTROPHILS ABSOLUTE AUTO 11.02 K/mm3 (1.96-9.15); NEUTROPHILS PERCENT AUTO 69 % (41-73); Platelet Count 398 K/mm3 (150-400); RDW Coefficient Variation 12.4 % (11.7-14.2); RDW Standard Deviation 39.1 fL (35.1-46.3); Red Blood Cell Count 5.22 M/mm3 (3.80-5.20); White Blood Cell Count 16.04 K/mm3 (4.00-11.30)
[2021-11-01 18:50] LABS: Albumin, Blood 4.1 g/dL (3.4-5.0); Albumin/Globulin Ratio 1.4 (0.8-1.8); Bilirubin, Total 4.3 mg/dL (0.1-1.0); Calcium, Blood 9.7 mg/dL (8.5-10.1); Creatinine, Blood 0.63 mg/dL (0.40-1.00); Potassium, Blood 3.2 mmol/L (3.5-5.5); Total Protein, Blood 7.1 g/dL (6.4-8.2)
[2021-11-01 20:39] LABS: Source, Urine Clean Catch
[2021-11-01 20:44] LABS: Blood, Urine 1+ (Neg); Glucose Qualitative, Urine Neg (Neg); Ketones, Urine 4+ (Neg); Leukocyte Esterase, Urine 1+ (Neg); Nitrite, Urine Neg (Neg); Protein, Urine 2+ (Neg); Specific Gravity, Urine 1.025 (1.003-1.022); Urobilinogen, Urine 2+ (Normal)
[2021-11-01 20:50] LABS: Appearance, Urine Hazy (Clear); Bilirubin, Urine 2+ (Neg); Color, Urine Amber (P-Yellow)
[2021-11-01 20:54] LABS: Amorphous Light (0-Heavy); Bacteria Mod /hpf; Calcium Oxalate Crystals Mod /hpf; Mucus Heavy (0-Heavy); Red Blood Cells, Urine 0-2 /hpf (0-2); Squamous Epithelial Cells Few /hpf (Few)
[2021-11-01] MEDS ORDERED: CEPH500 PO (20:59)
== END 2021-11-01 21:53 | disposition home or self-care (01) ==
LOC: ER 17:10
PROVIDERS: Physician Assistant
DX: N39.0 Urinary tract infection, site not specified (principal); F17.210 Nicotine dependence, cigarettes, uncomplicated; Z88.8 Allergy status to other drugs, medicaments and biological substances; Z79.899 Other long term (current) drug therapy; Z79.82 Long term (current) use of aspirin
CPT/HCPCS: 36415; 80053; 81001; 85025; 87086; 93005; 93010; 99284-25; A9270

== ENCOUNTER 2021-11-02 09:27 | Emergency (ER) | payer OTHER ==
[~2021-11-02] VITALS: Ht 152.4 cm; Wt 68.0 kg
== END 2021-11-02 10:12 | disposition home or self-care (01) ==
LOC: ER 09:27
DX: Z00.00 Encounter for general adult medical examination without abnormal findings (principal); Z87.891 Personal history of nicotine dependence; Z79.899 Other long term (current) drug therapy; Z79.82 Long term (current) use of aspirin
CPT/HCPCS: 99283

== ENCOUNTER 2021-11-04 13:31 | Observation (INO) | payer OTHER ==
[~2021-11-04] VITALS: Ht 152.4 cm; Wt 59.0 kg
[2021-11-04 14:21] LABS: BASOPHILS ABSOLUTE AUTO 0.07 K/mm3 (0.00-0.23); BASOPHILS PERCENT AUTO 1 % (0-2); EOSINOPHILS ABSOLUTE AUTO 0.17 K/mm3 (0.00-0.68); EOSINOPHILS PERCENT AUTO 1 % (0-6); Hematocrit 42.9 % (33.0-51.0); Hemoglobin 14.8 g/dL (11.5-16.0); IMMATURE GRAN ABSOLUTE AUTO 0.04 K/mm3 (0.00-0.10); IMMATURE GRAN PERCENT AUTO 0 % (0-1); LYMPHOCYTES ABSOLUTE AUTO 4.61 K/mm3 (0.84-5.20); LYMPHOCYTES PERCENT AUTO 38 % (21-46); MONOCYTES ABSOLUTE AUTO 0.82 K/mm3 (0.16-1.47); MONOCYTES PERCENT AUTO 7 % (4-13); Mean Corpuscular HGB Conc 34.5 g/dL (31.5-36.5); Mean Corpuscular Volume 87 fL (80-100); Mean Platelet Volume 9.7 fL (9.1-12.4); NEUTROPHILS ABSOLUTE AUTO 6.33 K/mm3 (1.96-9.15); NEUTROPHILS PERCENT AUTO 53 % (41-73); Platelet Count 386 K/mm3 (150-400); RDW Coefficient Variation 12.5 % (11.7-14.2); RDW Standard Deviation 39.9 fL (35.1-46.3); Red Blood Cell Count 4.93 M/mm3 (3.80-5.20); White Blood Cell Count 12.04 K/mm3 (4.00-11.30)
[2021-11-04 14:39] LABS: Ethanol (Alcohol), Blood, Med <3 mg/dL; Salicylate <1.7 mg/dL (2.8-20.0)
[2021-11-04 14:45] LABS: Alanine Aminotransfer (ALT/SGP 27 U/L (12-78); Albumin, Blood 3.7 g/dL (3.4-5.0); Albumin/Globulin Ratio 1.3 (0.8-1.8); Alk Phos 64 U/L (50-136); Anion Gap 8 mmol/L (6-16); Aspartate Aminotrans (AST/SGOT 22 U/L (12-37); Bilirubin, Total 1.1 mg/dL (0.1-1.0); Blood Urea Nitrogen 15 mg/dL (8-24); Bun/Creatinine Ratio 26.1 (12.0-20.0); CO2, Blood 27 mmol/L (21-32); Calcium, Blood 9.4 mg/dL (8.5-10.1); Chloride, Blood 108 mmol/L (98-108); Creatinine, Blood 0.58 mg/dL (0.40-1.00); Globulin, Blood 2.8 g/dL (2.2-4.0); Glomerular Filtration Rate 112 (60-); Glucose, Blood 112 mg/dL (70-99); Potassium, Blood 2.9 mmol/L (3.5-5.5); Sodium, Blood 143 mmol/L (136-145); Total Protein, Blood 6.5 g/dL (6.4-8.2)
[2021-11-04 14:46] LABS: Acetaminophen, Random <2.0 ug/mL (10.0-30.0)
[2021-11-04 17:10] LABS: Influenza A, PCR NEGATIVE (NEGATIVE); Influenza B, PCR NEGATIVE (NEGATIVE); Resp Syncytial Virus, PCR NEGATIVE (NEGATIVE); SARS-Cov-2 (COVID-19) PCR, MMC NEGATIVE (NEGATIVE)
[2021-11-04 22:24] LABS: Source, Urine Clean Catch
[2021-11-04 22:27] LABS: Appearance, Urine Hazy (Clear); Bilirubin, Urine Neg (Neg); Blood, Urine Neg (Neg); Color, Urine Yellow (P-Yellow); Glucose Qualitative, Urine Neg (Neg); Ketones, Urine Neg (Neg); Leukocyte Esterase, Urine Neg (Neg); Nitrite, Urine Neg (Neg); Protein, Urine Neg (Neg); Urobilinogen, Urine 1+ (Normal); pH, Urine 6.5 (5.0-8.0)
[2021-11-04 22:35] LABS: Amorphous Mod (0-Heavy); Bacteria Few /hpf; Red Blood Cells, Urine 0-2 /hpf (0-2); Squamous Epithelial Cells Few /hpf (Few); White Blood Cells, Urine 0-2 /hpf (0-5)
[2021-11-04 22:40] LABS: U Amphetamine Screen Not Detected; U Barbituate Screen Not Detected; U Benzodiazapine Screen Not Detected; U Methamphetamine Screen Not Detected
[2021-11-04 22:41] LABS: U Buprenorphine Screen Not Detected; U Cannabinoids Screen Not Detected; U Cocaine Screen Not Detected; U Methadone Screen Not Detected; U Opiates Screen Not Detected; U Oxycodone Screen Not Detected; U Phencyclidine Screen Not Detected; U Propoxyphene Screen Not Detected
== END 2021-11-09 17:23 | disposition left against medical advice (07) ==
LOC: ER 13:31 → EOR 13:32
PROVIDERS: Physician Assistant; ADMIT Student in an Organized Health Care Education/Training Program
DX: F20.89 Other schizophrenia (principal); N39.0 Urinary tract infection, site not specified; Z88.8 Allergy status to other drugs, medicaments and biological substances; F17.210 Nicotine dependence, cigarettes, uncomplicated; Z20.822 Contact with and (suspected) exposure to COVID-19
CPT/HCPCS: 0241U; 36415; 80053; 81001; 81025; 85025; 96372; 99285-25; A9270; G0378; G0480; J1790; Q3014

== ENCOUNTER → 2022-09-20 | Outpatient (CLI) | payer OTHER | END | disposition home or self-care (01) | LOC: LAB SHORT 15:53 → LAB 15:53 | DX: N39.0 Urinary tract infection, site not specified (principal) | CPT/HCPCS: 87077; 87086; 87186 ==